=== PATIENT | female | born 1935 | race Caucasian/White ===

== ENCOUNTER 2021-09-29 11:52 | Observation (INO) ==
[2021-09-29] MEDS ORDERED: IOPAMIDOL 100 ML BOTTLE IV ONE (11:53)
--- NOTE | 2021-09-29 11:59 | Emergency Department Note ---
HPI General Chief complaint: Neuro Symptoms/Deficit Stated complaint: Neuro Symptoms Time Seen by Provider: 09/29/21 11:59 Source: patient Mode of arrival: ambulatory Limitations: no limitations History of Present Illness HPI Narrative: 86-year-old female with past medical history of hypertension, CAD, and TIA in t he past presenting with left arm weakness. Patient was at [facility] when she acutely noticed weakness in her left arm and could not cath lab the cart with her left hand. She also noticed some numbness in the left side of her face and some visual changes in her left eye. Symptoms lasted approximately 10 to 15 minutes and slowly improved. Last known normal was 11:30 AM. On arrival to the ED patient feels like the symptoms have almost completely resolved but does think that her left arm might still be a little weak. Her visual changes have resolved. No headache, paresthesias, chest pain, dizziness, or shortness of breath. She reportedly suffered a TIA in 2016 in [place] that presented with l eft arm weakness. She was started on Plavix and is supposed to be taking it but states she stopped it a few years ago because she did not like taking it. No recent fall or head injury. Prior to today had been feeling her normal self. Currently has no complaints. Related Data Home Medications Medication Instructions Recorded Confirmed ibuprofen 600 mg tablet 600 mg PO TID PRN 09/29/21 09/29/21 Allergies Allergy/AdvReac Type Severity Reaction Status Date / Time levothyroxine AdvReac Intermediate Itching Verified 02/20/21 13:07 Review of Systems ROS ROS Narrative: Narrative: Constitutional: Denies fever Eyes: Reports vision change ENT ED: Denies throat pain Cardiovascular: Denies chest pain or palpitations Respiratory: Denies shortness of breath or cough Gastrointestinal: Denies abdominal pain, nausea, vomiting or diarrhea Genitourinary: Denies dysuria or hematuria Musculoskeletal: Denies back pain Integumentary: Denies rash Neurological: Reports weakness and numbness; Denies headache, paresthesias, confusion or dizziness Psychiatric: Denies anxiety Endocrine: Denies fatigue Hematological/Lymphatic: Denies easy bleeding PFSH Narrative Patient History Narrative: Narrative: Medical/Surgical/Family History All Active Problems (Updated 09/29/21 @ 15:47 by Brenton Pettit MD) Situational stress (Acute) Hypertension, essential (Acute) Right knee pain (Acute) Hormone imbalance (Acute) Leg cramps (Acute) History of TIA (transient ischemic attack) (Acute) Hyponatremia (Acute) Dehydration (Acute) Screening mammogram, encounter for (Chronic ~2003) Urine incontinence (Chronic) Skin lesion of hand (Acute) Paresthesias (Acute) Palmar erythema (Acute) History of colonoscopy (Chronic) History of bunionectomy (Chronic ~1998) SOB (shortness of breath) on exertion (Chronic) Insomnia (Chronic) Asthma (Chronic) Stress incontinence (Chronic) Allergic rhinitis (Chronic) Vitamin D deficiency (Chronic) Adrenal cortical hyperfunction (Chronic) Muscle spasm (Chronic) Shoulder pain, right (Chronic) Shoulder pain, bilateral (Chronic) Back pain, thoracic (Chronic) Stress (Chronic) Chronic pain of left knee (Chronic) Anxiety with depression (Chronic) Neck pain (Chronic) Pain in right wrist (Chronic) Impingement syndrome of right shoulder (Chronic) Carpal tunnel syndrome of right wrist (Chronic) Encounter for long-term (current) use of medications (Chronic) Primary osteoarthritis, left wrist (Chronic) Hot flashes (Chronic) TIA (transient ischemic attack) (Chronic) Hyperlipidemia, mixed (Chronic) History of transient ischemic attack (Chronic) Memory impairment (Chronic) Fatigue (Chronic) Cervical radiculopathy (Chronic) CAD (coronary artery disease) (Chronic) Krystle's thyroiditis (Chronic) Hyperlipidemia (Chronic) GERD (gastroesophageal reflux disease) (Chronic) Medical History (Updated 09/29/21 @ 15:47 by Brenton Pettit MD) Adrenal cortical hyperfunction Allergic rhinitis Anxiety with depression Asthma Back pain, thoracic CAD (coronary artery disease) Carpal tunnel syndrome of right wrist Cervical radiculopathy Chronic pain of left knee Encounter for long-term (current) use of medications Fatigue GERD (gastroesophageal reflux disease) Krystle's thyroiditis History of transient ischemic attack Hot flashes Hyperlipidemia Hyperlipidemia, mixed Impingement syndrome of right shoulder Insomnia Memory impairment Muscle spasm Neck pain Pain in right wrist Primary osteoarthritis, left wrist Screening mammogram, encounter for (~2003) Shoulder pain, bilateral Shoulder pain, right SOB (shortness of breath) on exertion Stress Stress incontinence TIA (transient ischemic attack) Urine incontinence Vitamin D deficiency Surgical History History of bunionectomy (~1998) Dr Fonseca History of colonoscopy Dr Wharton Family History Mother , Age 91 CHF (congestive heart failure) Father , Age 81 CHF (congestive heart failure) HBP (high blood pressure) Social History Smoking Status: Former smoker Alcohol Intake Frequency: 0-2 drinks per day Exam Narrative Narrative: Narrative: General Limitations: no limitations General appearance: Present alert and in no apparent distress Head Head: Present atraumatic and normocephalic Eye Eye: Present normal appearance, PERRL, EOMI and visual diaz intact; Absent scleral icterus, conjunctival injection or nystagmus ENT ENT: Present mucous membranes moist Neck Neck: Present normal inspection, full ROM and trachea midline; Absent meningismus or lymphadenopathy Chest Chest: Present symmetric chest wall rise Respiratory Respiratory: Present normal lung sounds bilaterally; Absent respiratory distress, wheezes, stridor, accessory muscle use or prolonged expiratory phase Cardiovascular Cardiovascular: Present regular rate and normal rhythm; Absent systolic murmur or diastolic murmur Adbominal Abdominal: Present soft; Absent distention, tenderness, guarding, rebound, rigidity, organomegaly or mass Extremities Extremities: Present normal inspection; Absent pretibial edema Back Back: Present normal inspection Neurological Neurological: Present alert, oriented X3 and CN II-XII intact; Absent motor sensory deficit Expanded Neurological Patient oriented to: Present person, place and time Speech: Present fluid speech; Absent receptive aphasia, expressive aphasia or dysarthria CRANIAL NERVES: EOM function (II, III, IV, ): Normal, facial sensation (V): Normal, facial palsy (VII): Normal, gag reflex (IX): Normal, spinal accessory function (XI): Normal and tongue deviation (XII): Normal CEREBELLAR FUNCTION: finger to nose: Normal Motor strength - LUE: 5/5 Motor strength - RUE: 5/5 Motor strength - LLE: 5/5 Motor strength - RLE: 5/5 UPPER MOTOR NEURON EXAM: jose l neglect: Normal and pronator drift: Normal SENSORY EXAM UPPER EXTREMITY: Normal: light touch SENSORY EXAM LOWER EXTREMITY: Normal: light touch Coma Scale Eye Opening: Spontaneous Coma Scale Motor Response: Obeys Commands Coma Scale Verbal Response: Oriented Coma Scale Total: 15 Psychiatric Psychiatric: Present normal affect and normal mood Skin Skin: Present warm (WNL) and dry Course Consultations Consultation #1: Dr. Mejia, [facility] Time: 12:15 Consultation #2: Dr. Mejia, [facility] Time: 12:45 Consultation #3: Dr. Fountain, hospitalist Time: 15:43 Vital Signs Vital signs: Vital Signs Temperature 98.1 F 09/29/21 11:54 Pulse Rate 62 09/29/21 11:54 Respiratory Rate 18 09/29/21 11:54 Blood Pressure 136/60 09/29/21 11:54 Pulse Oximetry (%) 92 09/29/21 11:54 Temperature 98.1 F 09/29/21 11:54 Pulse Rate 44 L 09/29/21 15:25 Respiratory Rate 17 09/29/21 15:25 Blood Pressure 129/66 09/29/21 15:16 Pulse Oximetry (%) 85 L 09/29/21 15:25 MDM MDM Narrative Medical decision making narrative: 86-year-old female presenting with left arm weakness and left facial numbness. Symptoms seem to have resolved however she subjectively still feels like her left arm is slightly weak. On neurologic exam I note no focal neurologic deficits and her NIH stroke scale is 0. Concern for TIA versus CVA. Vital signs are normal. Last known normal was 11:30 AM. Code stroke activated. I spoke with Dr. Mejia of [facility]. CT brain and CTA head and neck are pend ing. Labs and EKG ordered. 1555: CT brain and CTA head and neck show no acute abnormalities. I spoke with Dr. Mejia of [facility] who recommends admission for TIA work-up. Aspirin given. Labs within normal limits. EKG with no ischemic changes. Patient endorsed to Dr. Fountain for admission. Lab Data Lab results reviewed: Yes I reviewed the patient's lab results. Result diagrams: 09/29/21 12:10 09/29/21 12:10 Labs: Lab Results 09/29/21 09/29/21 09/29/21 Range/Units 12:10 12:10 12:10 WBC 4.8 (4.5-11.0) K/mcL RBC 4.17 (3.59-5.38) M/mcL Hgb 12.9 (11.2-15.7) g/dL Hct 38.1 (34.1-44.9) % MCV 91.4 (80.0-100.0) fL MCH 30.9 (26.0-34.0) pg MCHC 33.9 (31.0-36.0) g/dL RDW 12.3 (11.5-14.5) % Plt Count 279 (140-440) K/mcL MPV 9.2 (7.4-10.4) fL Neut % (Auto) 64.3 (38.0-78.0) % Lymph % (Auto) 24.2 (15.5-49.0) % [place] % (Auto) 9.2 (1.0-12.0) % Eos % (Auto) 1.9 (0.0-7.0) % Baso % (Auto) 0.4 (0.0-2.0) % Lymph # (Auto) 1.15 L (1.50-4.80) K/mcL [place] # (Auto) 0.44 (0.10-0.90) K/mcL Eos # (Auto) 0.09 (0.00-0.70) K/mcL Baso # (Auto) 0.02 (0.00-0.30) K/mcL Absolute Neutrophils 3.06 (1.80-8.00) K/mcL POC PT 12.3 (11.9-14.5) sec PT 13.4 (11.9-14.5) sec POC INR 1.0 (0.8-1.2) INR 1.0 (0.9-1.1) APTT 33.4 (20.0-37.0) sec Sodium 134 (133-145) mmol/L Potassium 4.1 (3.3-5.1) mmol/L Chloride 99 (96-108) mmol/L Carbon Dioxide 23 (22-30) mmol/L Anion Gap 12.0 (8.0-16.0) BUN 12 (8-23) mg/dL Creatinine 0.6 (0.6-1.1) mg/dL POC Creatinine 0.6 (0.6-1.2) mg/dL GFR Calculation 83 Glucose 88 (70-105) mg/dL Calcium 9.0 (8.6-10.4) mg/dL Total Bilirubin 0.3 (0.1-1.0) mg/dL AST 21 (<32) U/L ALT 13 (<40) U/L Alkaline Phosphatase 81 (39-117) U/L Troponin T (<0.03) ng/mL Total Protein 6.8 (5.9-8.4) gm/dL Albumin 4.1 (3.2-5.2) gm/dL Globulin 2.7 (2.2-3.7) gm/dL Albumin/Globulin Ratio 1.5 (1.0-2.3) Urine Color Urine Appearance (Clear) Urine pH (5.0-9.0) Ur Specific [place] (1.000-1.035) Urine Protein (Negative) mg/dL Urine Glucose (UA) (Negative) mg/dL Urine Ketones (Negative) mg/dL Urine Occult Blood (Negative) mg/dL Urine Nitrate (Negative) Urine Bilirubin (Negative) mg/dL Urine Urobilinogen mg/dL Ur Leukocyte Esterase (Negative) /uL Ur Culture Indicated? 09/29/21 09/29/21 Range/Units 12:10 13:54 WBC (4.5-11.0) K/mcL RBC (3.59-5.38) M/mcL Hgb (11.2-15.7) g/dL Hct (34.1-44.9) % MCV (80.0-100.0) fL MCH (26.0-34.0) pg MCHC (31.0-36.0) g/dL RDW (11.5-14.5) % Plt Count (140-440) K/mcL MPV (7.4-10.4) fL Neut % (Auto) (38.0-78.0) % Lymph % (Auto) (15.5-49.0) % [place] % (Auto) (1.0-12.0) % Eos % (Auto) (0.0-7.0) % Baso % (Auto) (0.0-2.0) % Lymph # (Auto) (1.50-4.80) K/mcL [place] # (Auto) (0.10-0.90) K/mcL Eos # (Auto) (0.00-0.70) K/mcL Baso # (Auto) (0.00-0.30) K/mcL Absolute Neutrophils (1.80-8.00) K/mcL POC PT (11.9-14.5) sec PT (11.9-14.5) sec POC INR (0.8-1.2) INR (0.9-1.1) APTT (20.0-37.0) sec Sodium (133-145) mmol/L Potassium (3.3-5.1) mmol/L Chloride (96-108) mmol/L Carbon Dioxide (22-30) mmol/L Anion Gap (8.0-16.0) BUN (8-23) mg/dL Creatinine (0.6-1.1) mg/dL POC Creatinine (0.6-1.2) mg/dL GFR Calculation Glucose (70-105) mg/dL Calcium (8.6-10.4) mg/dL Total Bilirubin (0.1-1.0) mg/dL AST (<32) U/L ALT (<40) U/L Alkaline Phosphatase (39-117) U/L Troponin T < 0.01 (<0.03) ng/mL Total Protein (5.9-8.4) gm/dL Albumin (3.2-5.2) gm/dL Globulin (2.2-3.7) gm/dL Albumin/Globulin Ratio (1.0-2.3) Urine Color Yellow Urine Appearance Clear (Clear) Urine pH 7.0 (5.0-9.0) Ur Specific [place] 1.040 (1.000-1.035) Urine Protein Negative (Negative) mg/dL Urine Glucose (UA) Negative (Negative) mg/dL Urine Ketones Negative (Negative) mg/dL Urine Occult Blood Negative (Negative) mg/dL Urine Nitrate Negative (Negative) Urine Bilirubin Negative (Negative) mg/dL Urine Urobilinogen Negative mg/dL Ur Leukocyte Esterase Negative (Negative) /uL Ur Culture Indicated? No Radiology Data Radiology results reviewed: Yes I reviewed the patient's radiology results. Radiology results narrative: Ordering Physician:Brenton Pettit M.D. Date of Service:09/29/21 Procedure(s):CT head/brain wo con CLINICAL INFORMATION: Code stroke COMPARISON: None. TECHNIQUE: 2.5 mm helical slices were obtained in the skull base to vertex. Following reconstruction, axial reformatted images were reviewed at bone and parenchymal windows. The exam was performed using radiation dose optimization techniques including, but not limited to, automated exposure control, adjustment of the mA and/or kV according to patient size and use of iterative reconstruction technique. FINDINGS: The ventricles, sulci, fissures, and cisterns are symmetrically enlarged compatible with mild age-related atrophy. No extra-axial fluid collections are identified. Mild patchy chronic ischemic changes, in the deep cerebral white matter, are expected for age. There is no hemorrhage, mass effect, or edema. Bone windows show no osseous abnormality. IMPRESSION: Mild atrophy and chronic ischemic changes in the deep cerebral white matter-expected for age. No acute findings Interpreted and Authenticated by: Colby Joe 09/29/21 Ordering Physician:Brenton Pettit M.D. Date of Service:09/29/21 Procedure(s):CT angio head CLINICAL INFORMATION: Neurodeficit code stroke COMPARISON: None. TECHNIQUE: 80 cc of Isovue-370 were injected intravenously , and using SmartPrep to maximize cerebral arterial opacification, 0.625 mm helical slices were obtained from the skull base through the cerebral vertex. Following reconstruction , sagittal, coronal and axial reformatted images were processed and reviewed at multiple windows and levels. 3D volume rendered and MIP images were acquired at a independent workstation. The exam was performed using radiation dose optimization techniques including, but not limited to, automated exposure control, adjustment of the mA and/or kV according to patient size and use of iterative reconstruction technique. FINDINGS: The intracranial internal carotid, vertebral, basilar, anterior, middle and posterior cerebral arteries and their branches are well-opacified and normal in contour and caliber without significant stenosis, occlusion or other pathology. Superficial/deep cerebral veins and deep venous sinuses are widely patent IMPRESSION: Normal exam Interpreted and Authenticated by: Colby Joe 09/29/21 Ordering Physician:Brenton Pettit M.D. Date of Service:09/29/21 Procedure(s):CT angio neck CLINICAL INFORMATION: Stroke COMPARISON: None. TECHNIQUE: 80 cc of Isovue-300 were injected intravenously followed by 40 cc of normal saline flush. Using SmartPrep, 0.625 helical slices were obtained from the thoracic aortic arch through the [place]. Following reconstruction, 2.5 mm sagittal, coronal and axial reformatted images were processed. MIPS , 3-D volume rendering and CPR images were also constructed. The exam was performed using radiation dose optimization techniques including, but not limited to, automated exposure control, adjustment of the mA and/or kV according to patient size and use of iterative reconstruction technique. FINDINGS: The thoracic aortic arch is normal diameter with minimal intimal thickening and conventional aortic branching. The brachiocephalic, both subclavian, both common, internal and external carotid and both vertebral arteries are widely patent without significant abnormality. 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 IMPRESSION: Normal exam Interpreted and Authenticated by: Colby Joe 09/29/21 EKG Data EKG #1: EKG attestation: Yes I reviewed and interpreted this EKG. and Yes There are no EKG findings of acute coronary syndrome EKG results narrative: Normal sinus rhythm at [address] elevation or depression. Interpretation: no acute changes Discharge Plan Patient/Caregiver Discharge Instructions Pt seen by [facility]ACH/PA only: No Clinical Impression: TIA (transient ischemic attack) Instructions: Transient Ischemic Attack (ED) Patient Disposition: Xfer As Inpt ([facility]) Follow up with: Kiesha Armstrong ARNP [Primary Care Provider] - Prescriptions: No Action ibuprofen 600 mg Tablet 600 mg PO TID PRN (Reason: Pain) 0RF
--- NOTE | 2021-09-29 12:24 | Cat Scan Report ---
CLINICAL INFORMATION: Code stroke COMPARISON: None. TECHNIQUE: 2.5 mm helical slices were obtained in the skull base to vertex. Following reconstruction, axial reformatted images were reviewed at bone and parenchymal windows. The exam was performed using radiation dose optimization techniques including, but not limited to, automated exposure control, adjustment of the mA and/or kV according to patient size and use of iterative reconstruction technique. FINDINGS: The ventricles, sulci, fissures, and cisterns are symmetrically enlarged compatible with mild age-related atrophy. No extra-axial fluid collections are identified. Mild patchy chronic ischemic changes, in the deep cerebral white matter, are expected for age. There is no hemorrhage, mass effect, or edema. Bone windows show no osseous abnormality. IMPRESSION: Mild atrophy and chronic ischemic changes in the deep cerebral white matter-expected for age. No acute findings Interpreted and Authenticated by: Colby Joe 09/29/21
[2021-09-29 12:29] LABS: POC Creatinine 0.6 mg/dL (0.6-1.2)
--- NOTE | 2021-09-29 12:45 | Cat Scan Report ---
CLINICAL INFORMATION: Neurodeficit code stroke COMPARISON: None. TECHNIQUE: 80 cc of Isovue-370 were injected intravenously , and using SmartPrep to maximize cerebral arterial opacification, 0.625 mm helical slices were obtained from the skull base through the cerebral vertex. Following reconstruction , sagittal, coronal and axial reformatted images were processed and reviewed at multiple windows and levels. 3D volume rendered and MIP images were acquired at a independent workstation. The exam was performed using radiation dose optimization techniques including, but not limited to, automated exposure control, adjustment of the mA and/or kV according to patient size and use of iterative reconstruction technique. FINDINGS: The intracranial internal carotid, vertebral, basilar, anterior, middle and posterior cerebral arteries and their branches are well-opacified and normal in contour and caliber without significant stenosis, occlusion or other pathology. Superficial/deep cerebral veins and deep venous sinuses are widely patent IMPRESSION: Normal exam Interpreted and Authenticated by: Colby Joe 09/29/21
--- NOTE | 2021-09-29 12:48 | Cat Scan Report ---
CLINICAL INFORMATION: Stroke COMPARISON: None. TECHNIQUE: 80 cc of Isovue-300 were injected intravenously followed by 40 cc of normal saline flush. Using SmartPrep, 0.625 helical slices were obtained from the thoracic aortic arch through the [place]. Following reconstruction, 2.5 mm sagittal, coronal and axial reformatted images were processed. MIPS , 3-D volume rendering and CPR images were also constructed. The exam was performed using radiation dose optimization techniques including, but not limited to, automated exposure control, adjustment of the mA and/or kV according to patient size and use of iterative reconstruction technique. FINDINGS: The thoracic aortic arch is normal diameter with minimal intimal thickening and conventional aortic branching. The brachiocephalic, both subclavian, both common, internal and external carotid and both vertebral arteries are widely patent without significant abnormality. 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 IMPRESSION: Normal exam Interpreted and Authenticated by: Colby Joe 09/29/21
[2021-09-29 13:05] LABS: POC Pro Time 12.3 sec (11.9-14.5)
[2021-09-29 13:22] LABS: Basophils # (Auto) 0.02 K/mcL (0.00-0.30); Basophils % (Auto) 0.4 % (0.0-2.0); Eosinophils # (Auto) 0.09 K/mcL (0.00-0.70); Eosinophils % (Auto) 1.9 % (0.0-7.0); Hematocrit 38.1 % (34.1-44.9); Hemoglobin 12.9 g/dL (11.2-15.7); Lymphocytes # (Auto) 1.15 K/mcL (1.50-4.80); Lymphocytes % (Auto) 24.2 % (15.5-49.0); Mean Cell Volume 91.4 fL (80.0-100.0); Mean Corpuscular HGB Conc 33.9 g/dL (31.0-36.0); Mean Platelet Volume 9.2 fL (7.4-10.4); Monocytes # (Auto) 0.44 K/mcL (0.10-0.90); Monocytes % (Auto) 9.2 % (1.0-12.0); Neutrophils % (Auto) 64.3 % (38.0-78.0); Platelet Count 279 K/mcL (140-440); RBC 4.17 M/mcL (3.59-5.38); Red Cell Distribution Width 12.3 % (11.5-14.5); WBC 4.8 K/mcL (4.5-11.0)
[2021-09-29 13:55] LABS: ALT/SGPT 13 U/L (<40); AST/SGOT 21 U/L (<32); Albumin 4.1 gm/dL (3.2-5.2); Albumin/Globulin Ratio 1.5 (1.0-2.3); Alkaline Phosphatase 81 U/L (39-117); Bilirubin,Total 0.3 mg/dL (0.1-1.0); Blood Urea Nitrogen 12 mg/dL (8-23); Carbon Dioxide 23 mmol/L (22-30); Chloride 99 mmol/L (96-108); Globulin 2.7 gm/dL (2.2-3.7); Glomerular Filtration Rate 83; Glucose 88 mg/dL (70-105); Partial Thromboplastin Time 33.4 sec (20.0-37.0)
[2021-09-29 13:56] LABS: Prothrombin Time 13.4 sec (11.9-14.5)
[2021-09-29 14:56] LABS: Appearance,Urine CLEAR (Clear); Bilirubin,Urine Negative (Negative); Color,Urine YELLOW; Culture Indicated,Urine No; Glucose,Urine (UA) Negative (Negative); Ketones,Urine Negative (Negative); Leukocyte Esterase,Urine Negative /uL (Negative); Nitrate,Urine Negative (Negative); Protein,Urine Negative (Negative); Urine Blood Negative (Negative); Urobilinogen,Urine Negative
[2021-09-29] MEDS ORDERED: ASPIRIN 325 MG ENTERIC COATED TABLET PO ONE (15:42)
[2021-09-29] MEDS ORDERED: CLOPIDOGREL 300 MG TABLET PO ONE (15:45)
[2021-09-29] MEDS ORDERED: ASPIRIN 325 MG ENTERIC COATED TABLET PO SCH (15:45)
--- NOTE | 2021-09-29 16:22 | Magnetic Resonance Report ---
CLINICAL INFORMATION: Extremity weakness evaluate for CVA COMPARISON: None. TECHNIQUE:Sagittal T1 FLAIR, axial T1 FLAIR, T2 FLAIR propeller, T2 propeller, gradient, diffusion, ADC and coronal T2 weighted images were acquired. FINDINGS: The ventricles, sulci, fissures and cisterns are symmetrically enlarged compatible with moderate age-related atrophy. There are no extra-axial fluid collections or mass are appreciated. Scattered chronic senescent ischemic foci are less than typically seen in this age group. There are no regions of restricted diffusion to suggest acute infarct. No edema or hemorrhage. The signal void in intracerebral arteries, extra-axial cranial nerves, pituitary, orbits and paranasal sinuses are all normal. IMPRESSION: Moderate atrophy with scattered chronic ischemic foci in the deep cerebral white matter less than typical for age. No evidence of acute infarct or other acute intracerebral abnormality Interpreted and Authenticated by: Colby Joe 09/29/21
[2021-09-29] MEDS ORDERED: ACETAMINOPHEN 325 MG TABLET PO PRN (16:28)
[2021-09-29] MEDS ORDERED: SENNOSIDES 1 TABLET PO PRN (16:28)
[2021-09-29] MEDS ORDERED: LACTULOSE 20 GM/30 ML ORAL.SOL PO PRN (16:28)
[2021-09-29] MEDS ORDERED: ONDANSETRON 4 MG/2 ML VIAL IV PRN (16:28)
--- NOTE | 2021-09-29 16:36 | Internal Med History&Physical ---
HPI History of Present Illness Patient information: Note initiated : 09/29/21 at 4:31 pm Service Date, if different from initiated Date: [] Patient: Altagracia Aldridge 86 y/o F admitted on for Neuro Symptoms. Chief Complaint: [] Chief complaint: Weakness of left upper extremity History of present illness: Ms. Aldridge is a 86 year old F with history of hypertension, TIA, allergic rhinitis, stress incontinence, vitamin D deficiency, chronic arthralgias (she denies history of coronary artery disease) presented with left arm weakness and numbness. Patient was at [facility] and she acutely noticed weakness of her left upper ext remity. She was with some of her friends and a retired RN asked her to seek emergent medical attention. She also noticed some numbness in the left side of her face. Her symptoms lasted about 10 to 15 minutes and resolved prior to her arrival to emergency room. Currently she feels all her symptoms have resolved completely. Denies any weakness or numbness. Denies any speech changes. Denies any vision changes. She reports this was similar to her prior TIA episode which happened in [place], [place] (2017) She says she was supposed to be on Plavix but stopped taking it a few years ago. She was also supposed to be on aspirin, she states she carries it in her purse, but never takes it. Constitutional Constitutional: Absent anorexia, chills, fatigue, fever(s), headache(s), lethargy, malaise or night sweats Cardiovascular Cardiovascular: Absent chest pain, chest pain at rest, diaphoresis, irregular heart rhythm or lightheadedness Respiratory Respiratory: Absent hemoptysis, wheezing or excessive phlegm production Gastrointestinal Gastrointestinal: Absent diarrhea, hematemesis, melena, nausea or vomiting Genitourinary Genitourinary: Absent dysuria Neurological Neurological: Absent abnormal gait, abnormal speech, confusion, dizziness or headache(s) PFSH PFSH All Active Problems Situational stress (Acute) Hypertension, essential (Acute) Right knee pain (Acute) Hormone imbalance (Acute) Leg cramps (Acute) History of TIA (transient ischemic attack) (Acute) Hyponatremia (Acute) Dehydration (Acute) Screening mammogram, encounter for (Chronic ~2003) Urine incontinence (Chronic) Skin lesion of hand (Acute) Paresthesias (Acute) Palmar erythema (Acute) History of colonoscopy (Chronic) History of bunionectomy (Chronic ~1998) SOB (shortness of breath) on exertion (Chronic) Insomnia (Chronic) Asthma (Chronic) Stress incontinence (Chronic) Allergic rhinitis (Chronic) Vitamin D deficiency (Chronic) Adrenal cortical hyperfunction (Chronic) Muscle spasm (Chronic) Shoulder pain, right (Chronic) Shoulder pain, bilateral (Chronic) Back pain, thoracic (Chronic) Stress (Chronic) Chronic pain of left knee (Chronic) Anxiety with depression (Chronic) Neck pain (Chronic) Pain in right wrist (Chronic) Impingement syndrome of right shoulder (Chronic) Carpal tunnel syndrome of right wrist (Chronic) Encounter for long-term (current) use of medications (Chronic) Primary osteoarthritis, left wrist (Chronic) Hot flashes (Chronic) TIA (transient ischemic attack) (Chronic) Hyperlipidemia, mixed (Chronic) History of transient ischemic attack (Chronic) Memory impairment (Chronic) Fatigue (Chronic) Cervical radiculopathy (Chronic) CAD (coronary artery disease) (Chronic) Krystle's thyroiditis (Chronic) Hyperlipidemia (Chronic) GERD (gastroesophageal reflux disease) (Chronic) Medical History Adrenal cortical hyperfunction Allergic rhinitis Anxiety with depression Asthma Back pain, thoracic CAD (coronary artery disease) Carpal tunnel syndrome of right wrist Cervical radiculopathy Chronic pain of left knee Encounter for long-term (current) use of medications Fatigue GERD (gastroesophageal reflux disease) Krystle's thyroiditis History of transient ischemic attack Hot flashes Hyperlipidemia Hyperlipidemia, mixed Impingement syndrome of right shoulder Insomnia Memory impairment Muscle spasm Neck pain Pain in right wrist Primary osteoarthritis, left wrist Screening mammogram, encounter for (~2003) Shoulder pain, bilateral Shoulder pain, right SOB (shortness of breath) on exertion Stress Stress incontinence TIA (transient ischemic attack) Urine incontinence Vitamin D deficiency Surgical History History of bunionectomy (~1998) Dr Fonseca History of colonoscopy Dr Wharton Family History Mother , Age 91 CHF (congestive heart failure) Father , Age 81 CHF (congestive heart failure) HBP (high blood pressure) Social History household members: alone marital status: education level: college occupational status: employed occupation: [employer] leisure activities: exercise other: 2014 physical activity: walking and bicycling frequency: daily alcohol intake frequency: 0-2 drinks per day le/mormon: Anabaptist MEDS/ALLERGIES Home Medications and Allergies Home Medications Medication Instructions Recorded Confirmed Type ibuprofen 600 mg tablet 600 mg PO TID PRN 09/29/21 09/29/21 History Allergies Allergy/AdvReac Type Severity Reaction Status Date / Time levothyroxine AdvReac Intermediate Itching Verified 02/20/21 13:07 EXAM Constitutional Vitals: Temp Pulse Resp BP Pulse Ox 98.1 F 57 L 13 121/79 86 L 09/29/21 11:54 09/29/21 15:55 09/29/21 15:55 09/29/21 15:46 09/29/21 15:55 General appearance: average body habitus, cooperative and no acute distress Head Head exam: Present atraumatic and normocephalic Eye Eye exam: Present normal appearance ENT ENT exam: Present mucous membranes moist Respiratory Respiratory exam: Present normal respiratory exam and CTAB; Absent accessory muscle use, rales, respiratory distress, stridor or wheezes Cardiovascular Cardiovascular exam: Present normal rate and rhythm and RRR; Absent bradycardia, diastolic murmur, gallop, irregular rhythm or rubs GI/Abdominal GI/Abdominal exam: Present normal bowel sounds and soft; Absent distended, guarding or rebound Expanded Lower Extremity Exam Hip exam: Present normal inspection; Absent swelling Back Exam Back exam: Present normal inspection; Absent CVA tenderness (L), CVA tenderness (R), paraspinal tenderness or vertebral tenderness Neurological Exam Neurological exam: Present alert and oriented X3; Absent abnormal gait or motor sensory deficit Expanded Neurological Exam Neurological exam: Absent ataxia, expressive aphasia or inattentive Patient oriented to: Present person, place and time Speech: Present fluid speech Cranial nerves: EOM's intact: Normal, facial sensation: Normal and nystagmus: Normal Cerebellar function: finger to nose: Normal Neuro motor strength exam: LUE: 5, RUE: 5, LLE: 5 and RLE: 5 Coma Scale Motor Response: Obeys Commands DATA Data Completed and Pending Labs: Labs from last 24 hours 09/29/21 09/29/21 09/29/21 13:54 12:10 12:10 WBC RBC Hgb Hct MCV MCH MCHC RDW Plt Count MPV Neut % (Auto) Lymph % (Auto) [place] % (Auto) Eos % (Auto) Baso % (Auto) Lymph # (Auto) [place] # (Auto) Eos # (Auto) Baso # (Auto) Absolute Neutrophils POC PT PT POC INR INR APTT Sodium 134 Potassium 4.1 Chloride 99 Carbon Dioxide 23 Anion Gap 12.0 BUN 12 Creatinine 0.6 POC Creatinine 0.6 GFR Calculation 83 Glucose 88 Calcium 9.0 Total Bilirubin 0.3 AST 21 ALT 13 Alkaline Phosphatase 81 Troponin T < 0.01 Total Protein 6.8 Albumin 4.1 Globulin 2.7 Albumin/Globulin Ratio 1.5 Urine Color Yellow Urine Appearance Clear Urine pH 7.0 Ur Specific [place] 1.040 Urine Protein Negative Urine Glucose (UA) Negative Urine Ketones Negative Urine Occult Blood Negative Urine Nitrate Negative Urine Bilirubin Negative Urine Urobilinogen Negative Ur Leukocyte Esterase Negative Ur Culture Indicated? No 09/29/21 09/29/21 12:10 12:10 WBC 4.8 RBC 4.17 Hgb 12.9 Hct 38.1 MCV 91.4 MCH 30.9 MCHC 33.9 RDW 12.3 Plt Count 279 MPV 9.2 Neut % (Auto) 64.3 Lymph % (Auto) 24.2 [place] % (Auto) 9.2 Eos % (Auto) 1.9 Baso % (Auto) 0.4 Lymph # (Auto) 1.15 L [place] # (Auto) 0.44 Eos # (Auto) 0.09 Baso # (Auto) 0.02 Absolute Neutrophils 3.06 POC PT 12.3 PT 13.4 POC INR 1.0 INR 1.0 APTT 33.4 Sodium Potassium Chloride Carbon Dioxide Anion Gap BUN Creatinine POC Creatinine GFR Calculation Glucose Calcium Total Bilirubin AST ALT Alkaline Phosphatase Troponin T Total Protein Albumin Globulin Albumin/Globulin Ratio Urine Color Urine Appearance Urine pH Ur Specific [place] Urine Protein Urine Glucose (UA) Urine Ketones Urine Occult Blood Urine Nitrate Urine Bilirubin Urine Urobilinogen Ur Leukocyte Esterase Ur Culture Indicated? A/P Narrative A/P Narrative: [place] 36-year-old female with history of hypertension, thyroiditis,TIA, allergic rhinitis, stress incontinence, vitamin D deficiency, chronic arthralgias who presents with TIA #TIA Completely normal CBC and BMP. MRI of the brain was done which showed moderate atrophy with chronic ischemic foci in deep cerebral white matter. No acute infarct. Neck CTA done and was normal. CTA head was normal as well She was treated with 325 mg of aspirin and 300 mg of Plavix in ER. Her ABCD 2 score is more than 4 and hence she needs aspirin plus Plavix for 21 days and then aspirin indefinitely. Ordered carotid duplex ultrasound and echocardiogram. Continue panel monitor. Hemoglobin A1c, cholesterol level in the morning. We discussed about smoking cessation. Patient reported that she has not smoked in 36 years. Time Spent With Patient Time: Total time spent is greater than 50% in coordination of care (as documented) at patient's floor/unit and/or counseling patient: Total time spent with greater than 50% in coordination of care (as documented) at patient's floor/unit and/or counseling patient:: 50 - 70 minutes QUALITY Stroke Symptom Onset Unknown: No
[2021-09-29] MEDS: DOCUSATE SODIUM 100 MG CAPSULE PO SCH (20:27)
[2021-09-29] MEDS: 0.9 % SODIUM CHLORIDE 10 ML SYRINGE IV SCH (20:27)
[2021-09-30] MEDS: 0.9 % SODIUM CHLORIDE 10 ML SYRINGE IV SCH (05:29)
[2021-09-30 06:53] LABS: Basophils # (Auto) 0.01 K/mcL (0.00-0.30); Basophils % (Auto) 0.3 % (0.0-2.0); Eosinophils # (Auto) 0.16 K/mcL (0.00-0.70); Eosinophils % (Auto) 4.6 % (0.0-7.0); Hematocrit 36.6 % (34.1-44.9); Hemoglobin 12.5 g/dL (11.2-15.7); Lymphocytes # (Auto) 0.83 K/mcL (1.50-4.80); Lymphocytes % (Auto) 23.8 % (15.5-49.0); Mean Cell Volume 89.7 fL (80.0-100.0); Mean Corpuscular HGB Conc 34.2 g/dL (31.0-36.0); Mean Platelet Volume 8.8 fL (7.4-10.4); Monocytes # (Auto) 0.45 K/mcL (0.10-0.90); Monocytes % (Auto) 12.9 % (1.0-12.0); Neutrophils % (Auto) 58.4 % (38.0-78.0); Platelet Count 249 K/mcL (140-440); RBC 4.08 M/mcL (3.59-5.38); Red Cell Distribution Width 12.3 % (11.5-14.5); WBC 3.5 K/mcL (4.5-11.0)
[2021-09-30 07:07] LABS: Hemoglobin A1C 5.3 % Hgb (4.0-6.0)
[2021-09-30 07:29] LABS: Blood Urea Nitrogen 12 mg/dL (8-23); Calcium 8.9 mg/dL (8.6-10.4); Carbon Dioxide 23 mmol/L (22-30); Chloride 99 mmol/L (96-108); Glomerular Filtration Rate 88; Glucose 82 mg/dL (70-105)
[2021-09-30] MEDS: DOCUSATE SODIUM 100 MG CAPSULE PO SCH (08:19)
[2021-09-30] MEDS ORDERED: ASPIRIN 325 MG ENTERIC COATED TABLET PO SCH (09:00)
[2021-09-30] MEDS ORDERED: CLOPIDOGREL 75 MG TABLET PO SCH (09:00)
--- NOTE | 2021-09-30 11:42 | Discharge Summary ---
Discharge Provider Provider Patient information: Note initiated : 09/30/21 at 11:39 am Service Date, if different from initiated Date: [] Patient: Altagracia Aldridge 86 y/o F admitted on 09/29/21 for Neuro Symptoms. Chief Complaint: [] Date of admission: 09/29/21 16:54 Discharge date: 09/30/21 Primary care physician: DELL Sin Admitting clinician: Krys Founatin Attending physician on admission: Krys Fountain Consults: 09/29/21 Consult to Physician [CONS] Stat Comment: Consulting Provider: Krys Fountain Reason For Exam: Physician to Consult Attending physician on discharge: Krys Fountain Discharging clinician: Krys Fountain Discharge Meds Discharge Medications Home Medications aspirin 81 mg chewable tablet 81 mg PO QDAY #90 tab 09/30/21 [Rx Last Taken Unknown] clopidogrel 75 mg tablet 75 mg PO DAILY 21 Days #21 tab 09/30/21 [Rx Last Taken Unknown] COURSE Hospital Course Hospital course: Ms. Aldridge is a 86 year old F with history of hypertension, TIA, allergic rhinitis, stress incontinence, vitamin D deficiency, chronic arthralgias (she denies history of coronary artery disease) presented with left arm weakness and numbness. Patient was at [facility] and she acutely noticed weakness of her left upper extremity. She was with some of her friends and a retired RN asked her to seek emergent medical attention. She also noticed some numbness in the left side of her face. Her symptoms lasted about 10 to 15 minutes and resolved prior to her arrival to emergency room. Currently she feels all her symptoms have resolved completely. Denies any weakness or numbness. Denies any speech changes. Denies any vision changes. She reports this was similar to her prior TIA episode which happened in [place], [place] (2017) She says she was supposed to be on Plavix but stopped taking it a few years ago. She was also supposed to be on aspirin, she states she carries it in her purse, but never takes it. Ms. Aldridge is an 86-year-old female with history of hypertension, thyroiditis,TIA, allergic rhinitis, stress incontinence, vitamin D deficiency, chronic arthralgias who presents with TIA #TIA Completely normal CBC and BMP. MRI of the brain was done which showed moderate atrophy with chronic ischemic foci in deep cerebral white matter. No acute infarct. I personally reviewed telemetry alarms, and did not see any evidence of atrial fibrillation. Neck CTA done and was normal. CTA head was normal as well She was treated with 325 mg of aspirin and 300 mg of Plavix in ER. Her ABCD 2 score is more than 4 and hence she needs aspirin 81 mg plus Plavix for 21 days and then aspirin indefinitely. Hemoglobin A1c <5, cholesterol level within normal Her NIH score today 0, with no residual deficits. We discussed about smoking cessation. Patient reported that she has not smoked in 36 years. Discharge diagnosis: Transient ischemic attack Time Spent with Patient Time attestation: Total time spent providing and/or coordinating discharge services: Time spent: Greater than 30 minutes EXAM Constitutional Vitals: Temp Pulse Resp BP Pulse Ox 98.6 F 67 17 110/85 94 09/30/21 07:53 09/29/21 16:54 09/30/21 08:10 09/30/21 07:53 09/30/21 03:47 General appearance: average body habitus, cooperative and no acute distress Head Head exam: Present atraumatic and normocephalic Eye Eye exam: Present normal appearance ENT ENT exam: Present mucous membranes moist Respiratory Respiratory exam: Present normal respiratory exam and CTAB; Absent accessory muscle use, rales, respiratory distress, stridor or wheezes Cardiovascular Cardiovascular exam: Present normal rate and rhythm and RRR; Absent bradycardia, diastolic murmur, gallop, irregular rhythm or rubs GI/Abdominal GI/Abdominal exam: Present normal bowel sounds and soft; Absent distended, guarding or rebound Expanded Lower Extremity Exam Hip exam: Present normal inspection; Absent swelling Back Exam Back exam: Present normal inspection; Absent CVA tenderness (L), CVA tenderness (R), paraspinal tenderness or vertebral tenderness Neurological Exam Neurological exam: Present alert and oriented X3; Absent abnormal gait or motor sensory deficit Discharge Data Data Completed and Pending Labs on day of discharge: Labs from last 24 hours 09/30/21 09/30/21 09/30/21 05:25 05:25 05:25 WBC 3.5 L RBC 4.08 Hgb 12.5 Hct 36.6 MCV 89.7 MCH 30.6 MCHC 34.2 RDW 12.3 Plt Count 249 MPV 8.8 Neut % (Auto) 58.4 Lymph % (Auto) 23.8 [place] % (Auto) 12.9 H Eos % (Auto) 4.6 Baso % (Auto) 0.3 Lymph # (Auto) 0.83 L [place] # (Auto) 0.45 Eos # (Auto) 0.16 Baso # (Auto) 0.01 Absolute Neutrophils 2.04 POC PT PT POC INR INR APTT Sodium 131 L Potassium 4.2 Chloride 99 Carbon Dioxide 23 Anion Gap 9.0 BUN 12 Creatinine 0.5 L POC Creatinine GFR Calculation 88 Glucose 82 Hemoglobin A1c 5.3 Estim Average Glucose 105 Calcium 8.9 Total Bilirubin AST ALT Alkaline Phosphatase Troponin T Total Protein Albumin Globulin Albumin/Globulin Ratio Cholesterol 187 Urine Color Urine Appearance Urine pH Ur Specific Doyle Urine Protein Urine Glucose (UA) Urine Ketones Urine Occult Blood Urine Nitrate Urine Bilirubin Urine Urobilinogen Ur Leukocyte Esterase Ur Culture Indicated? 09/29/21 09/29/21 09/29/21 13:54 12:10 12:10 WBC RBC Hgb Hct MCV MCH MCHC RDW Plt Count MPV Neut % (Auto) Lymph % (Auto) [place] % (Auto) Eos % (Auto) Baso % (Auto) Lymph # (Auto) [place] # (Auto) Eos # (Auto) Baso # (Auto) Absolute Neutrophils POC PT PT POC INR INR APTT Sodium 134 Potassium 4.1 Chloride 99 Carbon Dioxide 23 Anion Gap 12.0 BUN 12 Creatinine 0.6 POC Creatinine 0.6 GFR Calculation 83 Glucose 88 Hemoglobin A1c Estim Average Glucose Calcium 9.0 Total Bilirubin 0.3 AST 21 ALT 13 Alkaline Phosphatase 81 Troponin T < 0.01 Total Protein 6.8 Albumin 4.1 Globulin 2.7 Albumin/Globulin Ratio 1.5 Cholesterol Urine Color Yellow Urine Appearance Clear Urine pH 7.0 Ur Specific [place] 1.040 Urine Protein Negative Urine Glucose (UA) Negative Urine Ketones Negative Urine Occult Blood Negative Urine Nitrate Negative Urine Bilirubin Negative Urine Urobilinogen Negative Ur Leukocyte Esterase Negative Ur Culture Indicated? No 09/29/21 09/29/21 12:10 12:10 WBC 4.8 RBC 4.17 Hgb 12.9 Hct 38.1 MCV 91.4 MCH 30.9 MCHC 33.9 RDW 12.3 Plt Count 279 MPV 9.2 Neut % (Auto) 64.3 Lymph % (Auto) 24.2 [place] % (Auto) 9.2 Eos % (Auto) 1.9 Baso % (Auto) 0.4 Lymph # (Auto) 1.15 L [place] # (Auto) 0.44 Eos # (Auto) 0.09 Baso # (Auto) 0.02 Absolute Neutrophils 3.06 POC PT 12.3 PT 13.4 POC INR 1.0 INR 1.0 APTT 33.4 Sodium Potassium Chloride Carbon Dioxide Anion Gap BUN Creatinine POC Creatinine GFR Calculation Glucose Hemoglobin A1c Estim Average Glucose Calcium Total Bilirubin AST ALT Alkaline Phosphatase Troponin T Total Protein Albumin Globulin Albumin/Globulin Ratio Cholesterol Urine Color Urine Appearance Urine pH Ur Specific [place] Urine Protein Urine Glucose (UA) Urine Ketones Urine Occult Blood Urine Nitrate Urine Bilirubin Urine Urobilinogen Ur Leukocyte Esterase Ur Culture Indicated? Discharge Plan Patient/Caregiver Discharge Instructions Activity: increase activity as tolerated Diet: Regular Diet Instructions: Transient Ischemic Attack (GEN) Prescriptions: New clopidogrel 75 mg Tablet 75 mg PO DAILY 21 Days Qty: 21 0RF aspirin 81 mg tablet,chewable 81 mg PO QDAY Qty: 90 3RF Discontinued ibuprofen 600 mg Tablet 600 mg PO TID PRN (Reason: Pain) 0RF Follow Up Plan Follow up with: Kiesha Armstrong ARNP [Primary Care Provider] - 10/08/21 1:15 pm Patient Disposition: Home, Self-Care Overall status at discharge: patient is back to baseline Discharge Orders: Discharge Order (Routine); Ordered 09/30/21 Ordered By: Krys Fountain
--- NOTE | 2021-09-30 12:44 | EKG ---
[facility] Test Date: 2021-09-29 Pat Name: Altagracia Aldridge Department: ED Room: Gender: Female Title Checker: AW : 1935 Requested By: Brenton Pettit Order Number: [id number] Reading MD: Yosef Cole Measurements Intervals [place] Rate: 57 P: 43 NH: 218 QRS: 3 QRSD: 84 T: 38 QT: 424 QTc: 413 Interpretive Statements Sinus rhythm Borderline prolonged NH interval Minimal ST elevation, anterior leads Electronically Signed On 09-30-2021 12:44:08 PDT by Yosef Cole /[email or web address]/[id number]
== END 2021-09-30 12:55 | disposition home or self-care (01) ==
LOC: ICU 11:52 → ED 11:52 → ICU 16:00
PROVIDERS: ADMIT Internal Medicine Medical Oncology; ATTEND Internal Medicine Medical Oncology